=== PATIENT | female | born 1975 | race Two or more races ===

== ENCOUNTER 2018-04-15 19:38 | Emergency (ER) | payer SELFPAY ==
[~2018-04-15] VITALS: Ht 165.1 cm; Wt 63.0 kg
[2018-04-15 19:42] VITALS: BP 105/73
== END 2018-04-15 21:15 | disposition left against medical advice (07) ==
LOC: ER 19:55
DX: Z53.21 Procedure and treatment not carried out due to patient leaving prior to being seen by health care provider (principal)

== ENCOUNTER 2018-05-17 23:55 | Emergency (ER) | payer OTHER ==
[~2018-05-17] VITALS: Ht 165.1 cm; Wt 68.0 kg
[2018-05-18] MEDS ORDERED: SODIUM CHLORIDE 0.9% 1,000 ML IV ONE (00:24)
[2018-05-18 01:20] LABS: CHLORIDE 108 mEq/L (98-107)
[2018-05-18 01:21] LABS: BASOPHILS % 0.3 % (0.0-2.0); EOSINOPHILS % 0.8 % (0.0-5.0); HEMATOCRIT. 37.9 % (36.0-48.0); HEMOGLOBIN. 12.7 g/dL (12.0-16.0); LYMPHOCYTES % 14.4 % (20.0-50.0); MEAN CORPUSCULAR HEMOGLOBIN 31.6 pg (28.0-32.0); MEAN CORPUSCULAR VOLUME 94.2 fL (81.0-99.0); MEAN PLATELET VOLUME 8.2 fl (7.4-10.4); MONOCYTES % 6.6 % (2.0-8.0); NEUTROPHILS % 77.9 % (40.0-76.0); PLATELET 241 x1000/uL (130-400); RED BLOOD CELL COUNT 4.02 mill/uL (4.2-5.4); RED CELL DISTRIBUTION WIDTH 13.2 % (11.6-14.6)
[2018-05-18 02:18] VITALS: BP 100/69
== END 2018-05-18 03:00 | disposition home or self-care (01) ==
LOC: ER 23:55
DX: I95.9 Hypotension, unspecified (principal)
CPT/HCPCS: 36415; 80053; 85025; 96360; 99284; J7030